=== PATIENT | female | born 1990 | race Caucasian/White ===

== ENCOUNTER 2018-05-31 11:55 | Emergency (ER) | payer SELFPAY ==
[~2018-05-31] VITALS: Ht 167.6 cm; Wt 68.0 kg
[2018-05-31 11:55] VITALS: BP 119/69
[2018-05-31] MEDS ORDERED: IPRATRPIUM/ALBUTEROL 0.5/2.5MG 3 ML NEBU. NEB ONE (12:15)
[2018-05-31] MEDS ORDERED: predniSONE 10 MG TABLET PO ONE (12:15)
[2018-05-31] MEDS ORDERED: BENZONATATE 100 MG CAPSULE. PO ONE (12:15)
--- NOTE | 2018-05-31 12:17 | PHYS DOC ---
Past Medical History Past Medical History: No Pertinent History Past Surgical History: No Surgical History Alcohol Use: None Drug Use: None Adult General Chief Complaint Chief Complaint: COUGH HPI HPI Patient is a 27 year old female with no significant medical history who presents today complaining of a productive cough, nasal congestion, sore throat and a fever that began 4 days ago. Review of Systems Review of Systems Constitutional: Denies fever or chills [] Eyes: Denies change in visual acuity, redness, or eye pain [] HENT: Denies nasal congestion or sore throat [] Respiratory: Reports cough, denies shortness of breath [] Cardiovascular: No additional information not addressed in HPI [] GI: Denies abdominal pain, nausea, vomiting, bloody stools or diarrhea [] : Denies dysuria or hematuria [] Musculoskeletal: Denies back pain or joint pain [] Integument: Denies rash or skin lesions [] Neurologic: Denies headache, focal weakness or sensory changes [] All other systems were reviewed and found to be within normal limits, except as documented in this note. Current Medications Current Medications Current Medications Medications (Trade) Dose Ordered Sig/Manuel Start Time Stop Time Status Last Admin Dose Admin Acetaminophen/ Hydrocodone Bitart (Lortab 5/325) 1 tab 1X ONCE 05/31/18 12:45 05/31/18 12:46 DC 05/31/18 12:49 1 TAB Albuterol/ Ipratropium (Duoneb) 3 ml 1X ONCE 05/31/18 12:15 05/31/18 12:16 DC 05/31/18 12:55 3 ML Benzonatate (Tessalon Perle) 100 mg 1X ONCE 05/31/18 12:15 05/31/18 12:16 DC 05/31/18 12:25 100 MG Cyclobenzaprine HCl (Flexeril) 10 mg 1X ONCE 05/31/18 12:45 05/31/18 12:46 DC 05/31/18 12:49 10 MG Prednisone (Prednisone) 50 mg 1X ONCE 05/31/18 12:15 05/31/18 12:16 DC 05/31/18 12:25 50 MG Allergies Allergies Allergies Coded Allergies Type Severity Reaction Last Updated Verified No Known Drug Allergies 10/20/15 No Physical Exam Physical Exam Constitutional: Well developed, well nourished, no acute distress, non-toxic appearance. [] HENT: Normocephalic, atraumatic, bilateral external ears normal, oropharynx moist, no oral exudates, patient sounds congested nasally. Posterior pharynx with mild erythema and exudate on the left side, Eyes: PERRLA, EOMI, conjunctiva normal, no discharge. [] Neck: Normal range of motion, no tenderness, supple, no stridor. [] Cardiovascular:Heart rate regular rhythm, no murmur [] Lungs & Thorax: Bilateral breath sounds clear to auscultation [] Abdomen: Bowel sounds normal, soft, no tenderness, no masses, no pulsatile masses. [] Skin: Warm, dry, no erythema, no rash. [] Back: No tenderness, no CVA tenderness. [] Extremities: No tenderness, no cyanosis, no clubbing, ROM intact, no edema. [] Neurologic: Alert and oriented X 3, normal motor function, normal sensory function, no focal deficits noted. [] Psychologic: Affect normal, judgement normal, mood normal. [] Current Patient Data Vital Signs Vital Signs Date Time Temp Pulse Resp B/P (MAP) Pulse Ox O2 Delivery O2 Flow Rate FiO2 05/31/18 12:56 98 Room Air 05/31/18 11:55 98.5 89 24 119/69 (86) 98.5 Lab Values Laboratory Tests Test 05/31/18 11:58 05/31/18 12:25 Influenza Type A Antigen Positive (NEGATIVE) Influenza Type B Antigen Negative (NEGATIVE) Group A Streptococcus Rapid Negative (NEGATIVE) EKG EKG [] Radiology/Procedures Radiology/Procedures []PROCEDURE: CHEST PA & LATERAL EXAM: Chest, 2 views. HISTORY: Cough and fever. COMPARISON: None. FINDINGS: 2 views the chest are obtained. There is no infiltrate, pleural effusion or pneumothorax. The heart is normal in size. IMPRESSION: No acute pulmonary finding. Electronically signed by: Carmen Powell MD (05/31/2018 1:07 PM) [facility] DICTATED and SIGNED BY: CARMEN POWELL MD DATE: 05/31/18 0238 Course & Med Decision Making Course & Med Decision Making Pertinent Labs and Imaging studies reviewed. (See chart for details) This is a 27-year-old female patient presenting to the ED today with multiple complaints including cough, nasal congestion, fever and sore throat. Physical exam consistent with tonsillitis. Discharged with amoxicillin. Given a DuoNeb treatment. Lungs have cleared up. Also started on prednisone. Positive for influenza A. Patient has been ill for more than 48 hours. Supportive care recommended including pushing fluids, rest, Tylenol /Motrin. Dragon Disclaimer Dragon Disclaimer This electronic medical record was generated, in whole or in part, using a voice recognition dictation system. Departure Departure Impression: Primary Impression: Acute tonsillitis Additional Impressions: Fever Influenza Bronchitis Disposition: 01 HOME, SELF-CARE Condition: STABLE Referrals: NO PCP (PCP) Patient Instructions: Fever, Adult, [id number], Influenza A (H1N1), Upper Respiratory Infection, Adult Additional Instructions: You were evaluated in the emergency room and noted to have tonsillitis, acute bronchitis, upper respiratory infection, and influenza A. Take the prescribed antibiotics for tonsillitis until completed. Take Tylenol or Motrin for pain or fever. Push fluids. Rest. Maintain good hand hygiene. Follow-up with your doctor in 1-2 weeks. Scripts Amoxicillin (AMOXICILLIN) 875 Mg Tablet 1 TAB PO BID, #20 TAB Prov: HORACE CAICEDO APRN 05/31/18 Prednisone (PREDNISONE) 50 Mg Tablet 1 TAB PO DAILY, #4 TAB Prov: HORCAE CAICEDO APRN 05/31/18 Benzonatate (TESSALON PERLE) 100 Mg Capsule 1 CAP PO TID, #30 CAP Prov: HORACE CAICEDO APRN 05/31/18 Albuterol Sulfate (VENTOLIN HFA INHALER) 18 Gm Hfa.aer.ad 2 PUFF INH Q4HRS for FOR ASTHMA, #1 INHALER 0 Refills Prov: HORACE CAICEDO APRN 05/31/18 Problem Qualifiers Primary Impression: Acute tonsillitis Pharyngitis/tonsillitis etiology: unspecified etiology Qualified Codes: J03.90 - Acute tonsillitis, unspecified Additional Impressions: Fever Fever type: unspecified Qualified Codes: R50.9 - Fever, unspecified HORACE CAICEDO APRN May 31, 2018 12:17
[2018-05-31] MEDS ORDERED: CYCLOBENZAPRINE 10 MG TABLET. PO ONE (12:45)
[2018-05-31] MEDS ORDERED: HYDROcodone/APAP 5/325MG 1 TAB TABLET PO ONE (12:45)
[2018-05-31 12:47] LABS: INFLUENZA A PATIENT POSITIVE (NEGATIVE)
[2018-05-31 12:48] LABS: INFLUENZA B PATIENT NEGATIVE (NEGATIVE)
--- NOTE | 2018-05-31 13:12 | RAD ---
EXAM: Chest, 2 views. HISTORY: Cough and fever. COMPARISON: None. FINDINGS: 2 views the chest are obtained. There is no infiltrate, pleural effusion or pneumothorax. The heart is normal in size. IMPRESSION: No acute pulmonary finding. Electronically signed by: Carmen Powell MD (05/31/2018 1:07 PM) [place] [id number]
[2018-05-31] MEDS ORDERED: AMOX875T PO (13:13)
[2018-05-31] MEDS ORDERED: PRED50TA PO (13:13)
[2018-05-31] MEDS ORDERED: VENTOLIN HFA18 GM INH (13:13)
[2018-05-31] MEDS ORDERED: BENZ100C PO (13:13)
== END 2018-05-31 13:30 | disposition home or self-care (01) ==
LOC: ER 11:55
DX: J03.80 Acute tonsillitis due to other specified organisms (principal); B97.89 Other viral agents as the cause of diseases classified elsewhere; J40 Bronchitis, not specified as acute or chronic
CPT/HCPCS: 71046; 87070; 87804; 87880; 94640; 99284; J7512; J7620

== ENCOUNTER 2019-12-01 09:40 | Emergency (ER) | payer SELFPAY ==
[~2019-12-01] VITALS: Ht 170.2 cm; Wt 65.0 kg
[~2019-12-01 09:40] MED LIST: AMOX875T PO; BENZ100C PO; PRED50TA PO; VENTOLIN HFA18 GM INH
--- NOTE | 2019-12-01 09:57 | PHYS DOC ---
Past Medical History Past Medical History: No Pertinent History Past Surgical History: No Surgical History Smoking Status: Never Smoker Alcohol Use: None Drug Use: None General Adult EDM: Chief Complaint: NAUSEA/VOMITING/DIARRHA HPI: HPI: Patient is a 29 year old female who presented to ER today for evaluation of nausea vomiting and abdominal cramping over 24-hours period. Patient denies any fever, no cough, no chest pain. Patient denies any sick exposure, no one else sick at home. Review of Systems: Review of Systems: Constitutional: Denies fever or chills. [] Eyes: Denies change in visual acuity. [] HENT: Denies nasal congestion or sore throat. [] Respiratory: Denies cough or shortness of breath. [] Cardiovascular: Denies chest pain or edema. [] GI: Positive for nausea vomiting, diarrhea, abdominal pain : Denies dysuria. [] Musculoskeletal: Denies back pain or joint pain. [] Integument: Denies rash. [] Neurologic: Denies headache, focal weakness or sensory changes. [] Endocrine: Denies polyuria or polydipsia. [] Lymphatic: Denies swollen glands. [] Psychiatric: Denies depression or anxiety. [] Heart Score: Risk Factors: Risk Factors: DM, Current or recent (<one month) smoker, HTN, HLP, family history of CAD, obesity. Risk Scores: Score 0 - 3: 2.5% MACE over next 6 weeks - Discharge Home Score 4 - 6: 20.3% MACE over next 6 weeks - Admit for Clinical Observation Score 7 - 10: 72.7% MACE over next 6 weeks - Early Invasive Strategies Current Medications: Laboratory Tests Test 12/01/19 09:58 White Blood Count 11.8 x10^3/uL Red Blood Count 5.08 x10^6/uL Hemoglobin 15.7 g/dL Hematocrit 45.4 % Mean Corpuscular Volume 89 fL Mean Corpuscular Hemoglobin 31 pg Mean Corpuscular Hemoglobin Concent 35 g/dL Red Cell Distribution Width 12.7 % Platelet Count 215 x10^3/uL Neutrophils (%) (Auto) 74 % Lymphocytes (%) (Auto) 20 % Monocytes (%) (Auto) 5 % Eosinophils (%) (Auto) 0 % Basophils (%) (Auto) 0 % Neutrophils # (Auto) 8.8 x10^3/uL Lymphocytes # (Auto) 2.4 x10^3/uL Monocytes # (Auto) 0.6 x10^3/uL Eosinophils # (Auto) 0.0 x10^3/uL Basophils # (Auto) 0.0 x10^3/uL Platelet Estimate Adequate Large Platelets Occ Giant Platelets Occ Urine Collection Type Void Urine Color Sandra Urine Clarity Clear Urine pH 5.5 Urine Specific [place] >=1.030 Urine Protein Negative mg/dL Urine Glucose (UA) Negative mg/dL Urine Ketones (Stick) >=80 mg/dL Urine Blood Negative Urine Nitrite Negative Urine Bilirubin Moderate Urine Urobilinogen Dipstick 1.0 mg/dL Urine Leukocyte Esterase Negative Urine RBC Rare /HPF Urine WBC 1-4 /HPF Urine Squamous Epithelial Cells Mod /LPF Urine Bacteria Few /HPF Urine Mucus Mod /LPF Urine Test Negative Sodium Level 138 mmol/L Potassium Level 3.9 mmol/L Chloride Level 99 mmol/L Carbon Dioxide Level 20 mmol/L Anion Gap 19 Blood Urea Nitrogen 19 mg/dL Creatinine 1.0 mg/dL Estimated GFR (Cockcroft-Gault) 66.0 BUN/Creatinine Ratio 19 Glucose Level 74 mg/dL Calcium Level 9.5 mg/dL Magnesium Level 2.0 mg/dL Total Bilirubin 1.9 mg/dL Aspartate Amino Transf (AST/SGOT) 18 U/L Alanine Aminotransferase (ALT/SGPT) 16 U/L Alkaline Phosphatase 54 U/L Total Protein 7.8 g/dL Albumin 4.7 g/dL Albumin/Globulin Ratio 1.5 Current Medications Medications (Trade) Dose Ordered Sig/Manuel Route PRN Reason Start Time Stop Time Status Last Admin Dose Admin Ondansetron HCl (Zofran) 8 mg 1X ONCE IVP 12/01/19 10:00 12/01/19 10:01 DC 12/01/19 10:19 Sodium Chloride 1,000 ml @ 1,000 mls/hr 1X ONCE IV 12/01/19 10:00 12/01/19 10:59 DC 12/01/19 10:20 Sodium Chloride 1,000 ml @ 1,000 mls/hr 1X ONCE IV 12/01/19 10:45 12/01/19 11:44 DC 12/01/19 11:45 Iohexol (Omnipaque 300 Mg/ml) 75 ml 1X ONCE IV 12/01/19 10:45 12/01/19 10:48 DC 12/01/19 11:12 Info (CONTRAST GIVEN -- Rx MONITORING) 1 each PRN DAILY PRN MC SEE COMMENTS 12/01/19 11:00 12/03/19 10:59 Allergies: Allergies: Allergies Coded Allergies Type Severity Reaction Last Updated Verified No Known Drug Allergies 10/20/15 No Physical Exam: PE: Constitutional: Well developed, well nourished, no acute distress, non-toxic appearance. [] HENT: Normocephalic, atraumatic, bilateral external ears normal, oropharynx moist, no oral exudates, nose normal. [] Eyes: PERRLA, EOMI, conjunctiva normal, no discharge. [] Neck: Normal range of motion, no tenderness, supple, no stridor. [] Cardiovascular:Heart rate regular rhythm, no murmur [] Lungs & Thorax: Bilateral breath sounds clear to auscultation [] Abdomen: Bowel sounds normal, soft, no tenderness, no masses, no pulsatile masses. [] Skin: Warm, dry, no erythema, no rash. [] Back: No tenderness, no CVA tenderness. [] Extremities: No tenderness, no cyanosis, no clubbing, ROM intact, no edema. [] Neurologic: Alert and oriented X 3, normal motor function, normal sensory function, no focal deficits noted. [] Psychologic: Affect normal, judgement normal, mood normal. [] Current Patient Data: Labs: Laboratory Tests Test 12/01/19 09:58 White Blood Count 11.8 x10^3/uL Red Blood Count 5.08 x10^6/uL Hemoglobin 15.7 g/dL Hematocrit 45.4 % Mean Corpuscular Volume 89 fL Mean Corpuscular Hemoglobin 31 pg Mean Corpuscular Hemoglobin Concent 35 g/dL Red Cell Distribution Width 12.7 % Platelet Count 215 x10^3/uL Neutrophils (%) (Auto) 74 % Lymphocytes (%) (Auto) 20 % Monocytes (%) (Auto) 5 % Eosinophils (%) (Auto) 0 % Basophils (%) (Auto) 0 % Neutrophils # (Auto) 8.8 x10^3/uL Lymphocytes # (Auto) 2.4 x10^3/uL Monocytes # (Auto) 0.6 x10^3/uL Eosinophils # (Auto) 0.0 x10^3/uL Basophils # (Auto) 0.0 x10^3/uL Platelet Estimate Adequate Large Platelets Occ Giant Platelets Occ Urine Collection Type Void Urine Color Sandra Urine Clarity Clear Urine pH 5.5 Urine Specific [place] >=1.030 Urine Protein Negative mg/dL Urine Glucose (UA) Negative mg/dL Urine Ketones (Stick) >=80 mg/dL Urine Blood Negative Urine Nitrite Negative Urine Bilirubin Moderate Urine Urobilinogen Dipstick 1.0 mg/dL Urine Leukocyte Esterase Negative Urine RBC Rare /HPF Urine WBC 1-4 /HPF Urine Squamous Epithelial Cells Mod /LPF Urine Bacteria Few /HPF Urine Mucus Mod /LPF Urine Test Negative Sodium Level 138 mmol/L Potassium Level 3.9 mmol/L Chloride Level 99 mmol/L Carbon Dioxide Level 20 mmol/L Anion Gap 19 Blood Urea Nitrogen 19 mg/dL Creatinine 1.0 mg/dL Estimated GFR (Cockcroft-Gault) 66.0 BUN/Creatinine Ratio 19 Glucose Level 74 mg/dL Calcium Level 9.5 mg/dL Magnesium Level 2.0 mg/dL Total Bilirubin 1.9 mg/dL Aspartate Amino Transf (AST/SGOT) 18 U/L Alanine Aminotransferase (ALT/SGPT) 16 U/L Alkaline Phosphatase 54 U/L Total Protein 7.8 g/dL Albumin 4.7 g/dL Albumin/Globulin Ratio 1.5 Current Medications Medications (Trade) Dose Ordered Sig/Manuel Route PRN Reason Start Time Stop Time Status Last Admin Dose Admin Ondansetron HCl (Zofran) 8 mg 1X ONCE IVP 12/01/19 10:00 12/01/19 10:01 DC 12/01/19 10:19 Sodium Chloride 1,000 ml @ 1,000 mls/hr 1X ONCE IV 12/01/19 10:00 12/01/19 10:59 DC 12/01/19 10:20 Sodium Chloride 1,000 ml @ 1,000 mls/hr 1X ONCE IV 12/01/19 10:45 12/01/19 11:44 DC 12/01/19 11:45 Iohexol (Omnipaque 300 Mg/ml) 75 ml 1X ONCE IV 12/01/19 10:45 12/01/19 10:48 DC 12/01/19 11:12 Info (CONTRAST GIVEN -- Rx MONITORING) 1 each PRN DAILY PRN MC SEE COMMENTS 12/01/19 11:00 7/4/20 10:59 EKG: EKG: [] Radiology/Procedures: Radiology/Procedures: [][facility] [address] [place] [address] IMAGING REPORT Signed PATIENT: CHEYANNE CONNELL CACCOUNT: [id number] : 1990 LOCATION: ER AGE: 29 SEX: F EXAM STATUS: REG ER ORD. PHYSICIAN: VENU BEARD DO REASON: nausea, vomiting, abdominal pain for 24 hours PROCEDURE: CT ABD PELV W/ IV CONTRST ONLY Examination: CT ABD PELV W/ IV CONTRST ONLY History: Reason: nausea, vomiting, abdominal pain for 24 hours / Spl. Instructions: INJ 75ML OMNI 300 / History: Comparison/Correlation: None Findings: Axial images of the abdomen and pelvis were obtained following IV contrast. Sagittal and coronal reformatted images were provided. Mass lesion with a biopsy clip marker within it is noted the left lateral lower breast region. Liver, spleen, pancreas, adrenal glands are normal. Kidneys unremarkable. Gallbladder fossa is normal. Appendix is normal. No bowel obstruction. No inflammatory findings. No enlarged abdominal or pelvic lymph nodes. No extraluminal gas. No ascites or pelvic free fluid. Urinary bladder is unremarkable. Uterus is unremarkable. Small left adnexal follicle is suggested. Very small right adnexal focal follicles also suggested. Bony structures are unremarkable. Impression: No suspicious process involving the abdomen or pelvis. PQRS Compliance Statement: One or more of the following individualized dose reduction techniques were utilized for this examination: 1. Automated exposure control 2. Adjustment of the mA and/or kV according to patient size 3. Use of iterative reconstruction technique Electronically signed by: Eldon Reed MD (12/01/2019 11:33 AM) [id number] DICTATED and SIGNED BY: ELDON REED MD DATE: 12/01/19 9555 Course & Med Decision Making: Course & Med Decision Making Pertinent Labs and Imaging studies reviewed. (See chart for details) Patient is a 29 year-old female who was evaluated in the ER due to nausea vomiting diarrhea. Patient was found to be dehydrated, she was given IV fluid in ER, she feels much better. Patient will be discharged home [place] Disclaimer: [place] Disclaimer: This electronic medical record was generated, in whole or in part, using a voice recognition dictation system. Departure Departure Impression: Primary Impression: Gastroenteritis Additional Impression: Dehydration Disposition: HOME, SELF-CARE Condition: IMPROVED Referrals: NO PCP (PCP) please follow up with your doctor in 2 days as needed Patient Instructions: Dehydration, Adult, Viral Gastroenteritis Additional Instructions: Thank you for visiting our Emergency Department. We appreciate you trusting us with your care. If any additional problems come up don't hesitate to return to visit us. Please follow up with your primary care provider so they can plan additional care if needed and know about the problem that you had. If symptoms worsen come back to the Emergency Department. Any concerning symptoms that start such as chest pain, shortness of air, weakness or numbness on one side of the body, running high fevers or any other concerning symptoms return to the ER. Scripts Ondansetron Hcl (ZOFRAN) 4 Mg Tablet 1 TAB PO Q6HRS, #12 TAB Prov: VENU BEARD DO 12/01/19 Justicifation of Admission Dx: Justifications for Admission: Justification of Admission Dx: N/A VENU BEARD DO Dec 01, 2019 09:57
[2019-12-01] MEDS ORDERED: IV NORMAL SALINE 1000ML BAG 1,000 ML IV ONE ×2 (10:00→10:45)
[2019-12-01] MEDS ORDERED: ONDANSETRON PF 4 MG/2 ML VIAL. IVP ONE (10:00)
[2019-12-01 10:10] LABS: BASO % 0 % (0-3); EOS % 0 % (0-3); HEMATOCRIT 45.4 % (36.0-47.0); HEMOGLOBIN 15.7 g/dL (12.0-15.5); LYMPH # 2.4 x10^3/uL (1.0-4.8); LYMPH % 20 % (24-48); MEAN CORPUSCULAR HEMOGLOBIN 31 pg (25-35); MEAN CORPUSCULAR HGB CONC 35 g/dL (31-37); MEAN CORPUSCULAR VOLUME 89 fL (79-100); MONO # 0.6 x10^3/uL (0.0-1.1); MONO % 5 % (0-9); NEUT # 8.8 x10^3/uL (1.8-7.7); NEUT % 74 % (31-73); PLATELET COUNT 215 x10^3/uL (140-400); RED BLOOD COUNT 5.08 x10^6/uL (3.50-5.40); RED CELL DISTRIBUTION WIDTH 12.7 % (11.5-14.5); WHITE BLOOD COUNT 11.8 x10^3/uL (4.0-11.0)
[2019-12-01 10:11] LABS: BILIRUBIN,URINE MODERATE (NEG); CLARITY,URINE CLEAR; COLOR,URINE AMBER; NITRITE,URINE NEGATIVE (NEG); PH,URINE 5.5 (<5.0-8.0); PROTEIN,URINE NEGATIVE (NEG-TRACE)
[2019-12-01 10:18] LABS: CALCIUM 9.5 mg/dL (8.5-10.1); POTASSIUM 3.9 mmol/L (3.5-5.1)
[2019-12-01 10:22] LABS: ALBUMIN 4.7 g/dL (3.4-5.0); ALBUMIN/GLOBULIN RATIO 1.5 (1.0-1.7); TOTAL BILIRUBIN 1.9 mg/dL (0.2-1.0); TOTAL PROTEIN 7.8 g/dL (6.4-8.2)
[2019-12-01 10:28] LABS: BACTERIA,URINE FEW /HPF (0-FEW); RBC,URINE RARE /HPF (0-2); SQUAMOUS EPITHELIAL CELL,UR MOD /LPF
[2019-12-01 10:32] LABS: U PREG PATIENT NEGATIVE (NEG)
[2019-12-01] MEDS ORDERED: IOHEXOL 300 MG/ML 100ML VIAL. IV ONE (10:45)
[2019-12-01 10:54] LABS: PLT ESTIMATE ADEQUATE (ADEQUATE)
[2019-12-01] MEDS ORDERED: CONTRAST GIVEN. MC PRN (11:00)
--- NOTE | 2019-12-01 11:36 | RAD ---
Examination: CT ABD PELV W/ IV CONTRST ONLY History: Reason: nausea, vomiting, abdominal pain for 24 hours / Spl. Instructions: INJ 75ML OMNI 300 / History: Comparison/Correlation: None Findings: Axial images of the abdomen and pelvis were obtained following IV contrast. Sagittal and coronal reformatted images were provided. Mass lesion with a biopsy clip marker within it is noted the left lateral lower breast region. Liver, spleen, pancreas, adrenal glands are normal. Kidneys unremarkable. Gallbladder fossa is normal. Appendix is normal. No bowel obstruction. No inflammatory findings. No enlarged abdominal or pelvic lymph nodes. No extraluminal gas. No ascites or pelvic free fluid. Urinary bladder is unremarkable. Uterus is unremarkable. Small left adnexal follicle is suggested. Very small right adnexal focal follicles also suggested. Bony structures are unremarkable. Impression: No suspicious process involving the abdomen or pelvis. PQRS Compliance Statement: One or more of the following individualized dose reduction techniques were utilized for this examination: 1. Automated exposure control 2. Adjustment of the mA and/or kV according to patient size 3. Use of iterative reconstruction technique Electronically signed by: Eldon Woodruff MD (12/01/2019 11:33 AM) [id number]
[2019-12-01] MEDS ORDERED: ONDA4TAB7 PO (12:16)
[2019-12-01 12:19] VITALS: BP 99/54
== END 2019-12-01 12:41 | disposition home or self-care (01) ==
LOC: ER 09:40
DX: K52.9 Noninfective gastroenteritis and colitis, unspecified (principal); E86.0 Dehydration
CPT/HCPCS: 36415; 74177; 80053; 81001; 81025; 83735; 85025; 96361; 96374; 99285; J2405; J7030; Q9967